=== PATIENT | female | born 1995 | race Caucasian/White ===

== ENCOUNTER 2024-03-08 12:06 | Emergency (ER) | payer OTHER ==
[2024-03-08 12:16] VITALS: BP 144/124; PULSE 70; RESP 18; TEMP 97.8
[2024-03-08] MEDS: LORazepam 2 MG/ML INJ IM STA (13:01)
--- NOTE | 2024-03-08 13:11 | ED ---
General Adult HPI - General Chief complaint: Neuro Symptoms/Deficit Stated complaint: drug abuse Time Seen by Provider: 03/08/24 12:39 Source: patient, EMS, RN notes reviewed, old records reviewed Mode of arrival: EMS Limitations: altered mental status - History of Present Illness Initial comments: Patient is a 28-year-old female presents emergency department for evaluation for agitation. States she relapsed after not doing drugs and at 4 AM this morning took methamphetamine with possible other mixed and drug at that time. States she feels very anxious since then and cannot sit still. States this is not normal for her. She admits she is agitated. Denies suicidal or homicidal ideations, times complaints. Denies any hallucinations. Is fully alert and oriented. Presents for further evaluation at this time. No other significant past medical history. Denies any alcohol use. - Related Data Previous Rx's Medication Instructions Recorded Albuterol Inhaler [Ventolin Hfa 1 - 2 puff INHALATION Q4-6H PRN #1 07/04/17 Inhaler] inhaler Albuterol Nebulized [Ventolin 2.5 mg INHALATION Q4H PRN 10 Days 07/04/17 Nebulized] nebu Azithromycin [Zithromax] 500 mg PO DAILY 5 Days tab 07/04/17 Benzonatate [Tessalon Perles] 100 mg PO TID PRN #20 capsule 07/04/17 predniSONE [Deltasone] 60 mg PO DAILY 5 Days tab 07/04/17 Allergies Allergy/AdvReac Type Severity Reaction Status Date / Time No Known Allergies Allergy Verified 07/04/17 21:02 Review of Systems ROS Statement: Those systems with pertinent positive or pertinent negative responses have been documented in the HPI. Review of Systems: CONST: Denies fever EYES: Denies blurry vision ENT: Denies nasal congestion C/V: Denies Chest pain RESP: Denies shortness of breath GI: Denies abdominal pain : Denies dysuria SKIN: Denies rash. MSK: Denies joint pain. NEURO: Denies headache ROS Other: All systems not noted in ROS Statement are negative. Past Medical History Past Medical History: Asthma Additional Past Medical History / Comment(s): kidney problems History of Any Multi-Drug Resistant Organisms: None Reported Past Surgical History: No Surgical Hx Reported Past Psychological History: Anxiety, Bipolar Smoking Status: Current every day smoker Past Alcohol Use History: None Reported Past Drug Use History: None Reported General Exam - General Exam Comments Initial Comments: General: Appears anxious and agitated. Cannot sit still. Extremely restless. HEAD: Normal with no signs of head trauma. EYES: PERRLA, EOMI, conjunctiva normal, no discharge. Pulls are 3 mm and equal bilaterally. ENT: Hearing grossly intact, normal oropharynx. RESPIRATORY: Clear breath sounds bilaterally. No wheezes, rales, or rhonchi. C/V: Regular rate and rhythm. S1 and S2 auscultated, no edema, peripheral pulses 2+ and intact throughout ABD: Abd is soft, nontender, nondistended EXT: Normal range of motion, no obvious deformity SKIN: No rashes or lesions observed on exposed skin. NEURO: Alert and oriented x 4. No focal deficits. Limitations: altered mental status Course Vital Signs 03/08/24 12:07 Temperature 97.8 F Pulse Rate 70 Respiratory 18 Rate Blood Pressure 144/124 O2 Sat by Pulse 100 Oximetry Medical Decision Making - Medical Decision Making Was pt. sent in by a medical professional or institution ( PA, [employer], urgent care, hospital, or fpc...) When possible be specific @ -No Did you speak to anyone other than the patient for history (EMS, parent, family, police, friend...)? What history was obtained from this source @ -No Did you review nursing and triage notes (agree or disagree)? Why? @ -I reviewed and agree with nursing and triage notes Were old charts reviewed (outside hosp., previous admission, EMS record, old EKG, old radiological studies, urgent care reports/EKG's, fpc records)? Report findings @ -No old charts were reviewed Differential Diagnosis (chest pain, altered mental status, abdominal pain women, abdominal pain men, vaginal bleeding, weakness, fever, dyspnea, syncope, headache, dizziness, GI bleed, back pain, seizure, CVA, palpatations, mental health, musculoskeletal)? @ -Differential Mental Health Depression, anxiety, bipolar, psychosis, schizophrenia, borderline personality, situational depression, adjustment disorder, behavioral disorder, brain tumor, malingering, substance abuse, encephalopathy, medication reaction, dementia, hypothyroidism, degenerative neurologic disorder, lupus.... This is not meant to be all-inclusive list EKG interpreted by me (3pts min.). @ -As above X-rays interpreted by me (1pt min.). @ -None done CT interpreted by me (1pt min.). @ -None done U/S interpreted by me (1pt. min.). @ -None done What testing was considered but not performed or refused? (CT, X-rays, U/S, labs)? Why? @ -None What meds were considered but not given or refused? Why? @ -None Did you discuss the management of the patient with other professionals (professionals i.e. , PA, [employer], lab, RT, psych nurse, social media assistant, manager clinical informatics, teacher, deputy juvenile officer, supportive employment case manager)? Give summary @ -No Was smoking cessation discussed for >3mins.? @ -No Was critical care preformed (if so, how long)? @ -No Were there social determinants of health that impacted care today? How? (Homelessness, low income, unemployed, alcoholism, drug addiction, tra nsportation, low edu. Level, literacy, decrease access to med. care, snf, rehab)? @ -No Was there de-escalation of care discussed even if they declined (Discuss DNR or withdrawal of care, Hospice)? DNR status @ -No What co-morbidities impacted this encounter? (DM, HTN, Smoking, COPD, CAD, Cancer, CVA, ARF, Chemo, Hep., AIDS, mental health diagnosis, sleep apnea, morbid obesity)? @ -Substance abuse Was patient admitted / discharged? Hospital course, mention meds given and route, prescriptions, significant lab abnormalities, going to OR and other pertinent info. @ -Patient presents with extreme anxiety and agitation. Likely related to methamphetamine use however patient states this anxiety is atypical for her. I did offer psychiatric evaluation which she was in agreement with and is also asking for something for sedation as she does not like how she feels. She will be given a dose of IM Ativan and we will obtain basic labs as well as an EKG. She was in agreement this plan. Did offer for EPS to evaluate the patient when she did accept. She is not petitioned. Is not a danger to herself or others at this point. Vital signs within acceptable limits. Patient became upset with nursing staff. She changes her mind and does not stay at this point. She states she does have a ride home. As the patient is not a danger to herself or others. She has no suicidal ideations, times complaints. She has no homicidal ideations, times complaints. Has no hallucinations. Presented for agitation after using meth 10 hours ago. She is fully alert and oriented x 4, ambulating, and is able to make her own decisions. I believe it is reasonable for her to leave at this time. I cannot force her to stay for observation, capable of making her own decisions. Patient was in agreement this plan. I did offer strict return precautions if this still persist. She was in agreement this plan. She would still like to leave. Patient was never petitioned. I did behavioral school counselors the patient to cease use of drugs including methamphetamine and she was in agreement with this. States the episode she had today was a relapse and she does not plan on using again. I instructed the patient to follow up with their PCP in the next 1-3 days. I explained that the patient should return to the emergency department if they experience any worsening symptoms. Strict return precautions were discussed with the patient. The patient expressed understanding of these instructions. I answered all questions that the patient had. The patient was discharged home in fair condition with their prescriptions and follow up information. Undiagnosed new problem with uncertain prognosis? @ -No Drug Therapy requiring intensive monitoring for toxicity (Heparin, Nitro, Insulin, Cardizem)? @ -No Were any procedures done? @ -No Diagnosis/symptom? @ -Agitation secondary to substance abuse, Methamphetamine abuse Acute, or Chronic, or Acute on Chronic? @ -Acute Uncomplicated (without systemic symptoms) or Complicated (systemic symptoms)? @ -Complicated Side effects of treatment? @ -None Exacerbation, Progression, or Severe Exacerbation] @ -No Poses a threat to life or bodily function? @ -Unlikely Disposition Clinical Impression: Agitation, Substance abuse, Methamphetamine abuse Disposition: HOME SELF-CARE Condition: Fair Instructions (If sedation given, give patient instructions): Methamphetamine Abuse (ED) Is patient prescribed a controlled substance at d/c from ED?: No Referrals: None,Stated [Primary Care Provider] - 1-2 days Forms: Area PCPs Time of Disposition: 13:23
[2024-03-08] MEDS: SODIUM CHLORIDE 0.9% 1,000 ML IV STA (13:25)
== END 2024-03-08 13:25 | disposition home or self-care (01) ==
LOC: EC 12:06
DX: R45.1 Restlessness and agitation (principal); F15.10 Other stimulant abuse, uncomplicated; F17.200 Nicotine dependence, unspecified, uncomplicated
CPT/HCPCS: 82075; 99285